=== PATIENT | male | born 1950 | race Caucasian/White ===

== ENCOUNTER → 2024-03-05 06:39 | Outpatient (REF) | payer MEDICARE, OTHER, SELFPAY | LOC: RCS 06:39 | PROVIDERS: ATTENDING PHYSICIAN Internal Medicine Cardiovascular Disease; FAMILY PHYSICIAN Student in an Organized Health Care Education/Training Program | DX: R06.02 Shortness of breath (principal); R94.31 Abnormal electrocardiogram [ECG] [EKG]; R07.89 Other chest pain | CPT/HCPCS: 78452; 93017; A9500 ==